=== PATIENT | male | born 1975 ===

== ENCOUNTER 2022-08-28 09:50 | Outpatient (CLI) | payer OTHER, SELFPAY ==
--- NOTE | ~2022-08-28 | CT_ITS ---
EXAMINATION: CT abdomen pelvis w con DATE: 08/28/2022 10:16 INDICATION: Left lower quadrant pain. Left inguinal pain. TECHNIQUE: Computed tomography (CT) of the abdomen and pelvis was performed with 100 cc Omnipaque 350 intravenous contrast. The dose-length product was 513.70 mGy-cm. Automated exposure control and iter ative reconstruction technique were employed. COMPARISON: None. FINDINGS: Lung bases are unremarkable. Heart size normal. No significant pleural or pericardial effus ion. The liver, spleen, pancreas, adrenal glands and kidneys are unremarkable. Gallbladder is present . Nonobstructive bowel pattern. There is a a left inguinal hernia containing nonobstructed colon. Parth dder wall is diffusely thickened, compatible with cystitis. There is atherosclerosis of the aorta wit hout aneurysm. No acute osseous abnormality. Mild lumbar spondylosis. No lymphadenopathy. IMPRESSION: 1. Left inguinal hernia containing nonobstructed colon. 2: Bladder wall thickening, consistent with cystitis. Reviewed, dictated and finalized at location A.
== END 2022-08-28 09:51 | disposition home or self-care (01) ==
LOC: ANHIMG 09:52
DX: K40.90 Unilateral inguinal hernia, without obstruction or gangrene, not specified as recurrent (principal); I70.0 Atherosclerosis of aorta; M47.816 Spondylosis without myelopathy or radiculopathy, lumbar region
CPT/HCPCS: 74177; Q9967